=== PATIENT | male | born 1985 | race Caucasian/White ===

== ENCOUNTER 2018-12-09 23:44 | Observation (INO) | payer OTHER ==
[2018-12-10] MEDS ORDERED: DIPH/PERTUSS(ACELL)/TETANUS VAC/PF 0.5 ML SYR (>=10YO) IM ONE (04:01)
[2018-12-10] MEDS ORDERED: MORPHINE SULFATE 10 MG/ML INJ IV ONE (04:01)
[2018-12-10] MEDS ORDERED: ONDANSETRON HCL INJ/PF 4 MG/2 ML SDV IV ONE (04:01)
[2018-12-10] MEDS ORDERED: VANCOMYCIN HCL INJ 1000 MG VIAL IV ONE (04:04)
[2018-12-10] MEDS ORDERED: CEFTRIAXONE 1 GM/D5W RTU 1 GM/50 ML RTUPB IV ONE (04:04)
--- NOTE | 2018-12-10 04:35 | ER Document Report ---
ED Skin Rash/Insect Bite/Abscs - General Chief Complaint: Skin Problem Stated Complaint: WOUND ON ELBOW/PAIN Time Seen by Provider: 12/10/18 03:45 TRAVEL OUTSIDE OF THE [place] IN LAST 30 DAYS: No - HPI Notes: Patient is a 33-year-old male who presents to the emergency department for right elbow pain. Patient states that last Friday he thinks that he was bit by something, but is unsure, and states that he noticed a possible bite viki that came to a friend. Gradually over the past few days reports increased pain to the right elbow with limited range of motion. Increased redness and swelling. Reports chills. Patient complaint of pain now radiating up his arm. She did have an episode of nausea earlier which she thinks is from pain. States that his tetanus shot is not up-to-date. Patient is not a diabetic. Does report a history of IV drug abuse, last used 2 years ago, does report using marijuana. - Related Data Allergies/Adverse Reactions: No Known Allergies Allergy (Unverified 12/09/18 23:56) Past Medical History - General Information source: Patient Review of Systems - Review of Systems Constitutional: See HPI EENT: No symptoms reported Cardiovascular: No symptoms reported Respiratory: No symptoms reported Gastrointestinal: No symptoms reported Genitourinary: No symptoms reported Male Genitourinary: No symptoms reported Musculoskeletal: See HPI Skin: See HPI Hematologic/Lymphatic: No symptoms reported Neurological/Psychological: No symptoms reported Physical Exam - Vital signs Vitals: Temp Pulse Resp BP Pulse Ox 98.1 F 89 18 143/72 H 96 12/09/18 23:58 12/09/18 23:58 12/09/18 23:58 12/09/18 23:58 12/09/18 23:58 - Notes Notes: PHYSICAL EXAMINATION: GENERAL: Sitting upright, A&Ox4, appears to be in mild distress r/t pain. HEAD: Atraumatic, normocephalic. EYES: Pupils equal round and reactive to light, extraocular movements intact, sclera anicteric, conjunctiva are normal. ENT: nares patent, oropharynx clear without exudates. Moist mucous membranes. NECK: Normal range of motion, supple without lymphadenopathy LUNGS: Breath sounds clear to auscultation bilaterally and equal. No wheezes rales or rhonchi. HEART: Regular rate and rhythm without murmurs ABDOMEN: Soft, nontender, normoactive bowel sounds. No guarding, no rebound. No masses appreciated. EXTREMITIES: Significant swelling and erythema noted on the posterior aspect of the right elbow, she has limited range of motion regards to the elbow joint. Streaking noted above the right elbow to mid upper arm. NEUROLOGICAL: No focal neurological deficits. Moves all extremities spontaneously and on command. PSYCH: Normal mood, normal affect. SKIN: Warm, Dry, normal turgor, no rashes or lesions noted. - General General appearance: Alert In distress: Moderate Course - Re-evaluation Re-evalutation: 12/10/18 04:53 Due to significant pain, swelling, erythema, and limited range of motion to the right elbow the appropriate tests have been ordered. Discussed findings with Randy Parekh PA-C who also visualized area of concern. Discussed test with patient and significant other. Patient in agreement with plan. 12/10/18 07:41 CT scan was negative for underlying abscess, I do not suspect septic joint due to patient's ability to move right elbow joint, CBC and BMP negative, spoke with Dr. Apple the hospitalist service will come to the ER see patient and admit. 12/10/18 07:52 Hospitalist requested orthopedics to be consulted. Dr. Zimmer called and made aware of case. States he will take a look at patient. 12/10/18 07:56 - Vital Signs Vital signs: Temp Pulse Resp BP Pulse Ox 98.9 F 77 18 122/80 100 12/10/18 06:23 12/10/18 06:23 12/10/18 06:23 12/10/18 06:23 12/10/18 06:23 - Laboratory Result Diagrams: 12/10/18 04:53 12/10/18 04:53 - Diagnostic Test Radiology reviewed: Reports reviewed Discharge - Discharge Clinical Impression: Cellulitis of upper extremity Qualifiers: Laterality: right Qualified Code(s): L03.113 - Cellulitis of right upper limb Condition: Stable Disposition: ADMITTED INPATIENT Admitting Provider: Ambika (Hospitalist) Unit Admitted: Medical Floor
[2018-12-10 05:11] LABS: ABSOLUTE EOSINOPHILS # (AUTO) 0.2 10^3/uL (0.0-0.6); ABSOLUTE LYMPHOCYTES (AUTO) 2.5 10^3/uL (0.5-4.7); ABSOLUTE MONOCYTES (AUTO) 0.8 10^3/uL (0.1-1.4); ABSOLUTE NEUT (AUTO) 6.7 10^3/uL (1.7-8.2); BASOPHILS % (AUTO) 0.5 % (0-2); HEMATOCRIT 41.6 % (37.9-51.0); HEMOGLOBIN 14.6 g/dL (13.5-17.0); LYMPHOCYTES % (AUTO) 24.2 % (13-45); MEAN CORPUSCULAR HEMOGLOBIN 30.9 pg (27.0-33.4); MEAN CORPUSCULAR HGB CONC 35.1 g/dL (32.0-36.0); MEAN CORPUSCULAR VOLUME 88 fl (80-97); MONOCYTES % (AUTO) 7.6 % (3-13); PLATELET COUNT 247 10^3/uL (150-450); RED BLOOD COUNT 4.73 10^6/uL (4.35-5.55); RED CELL DISTRIBUTION WIDTH 13.2 % (11.5-14.0); SEGMENTED NEUTROPHILS % (AUTO) 65.7 % (42-78); TOTAL CELLS COUNTED % (AUTO) 100 %; WHITE BLOOD COUNT 10.2 10^3/uL (4.0-10.5)
[2018-12-10 05:29] LABS: ANION GAP 9 (5-19); BLOOD UREA NITROGEN 19 mg/dL (7-20); CALCIUM 9.5 mg/dL (8.4-10.2); CARBON DIOXIDE 26 mmol/L (22-30); CHLORIDE 104 mmol/L (98-107); GLUCOSE 86 mg/dL (75-110); POTASSIUM 3.9 mmol/L (3.6-5.0); SODIUM 138.5 mmol/L (137-145)
[2018-12-10] MEDS ORDERED: HYDROMORPHONE HCL INJ/PF 2 MG/ML AMPULE IV ONE (05:40)
[2018-12-10] MEDS ORDERED: CEFTRIAXONE INJ 1000 MG VIAL ONE (05:46)
--- NOTE | 2018-12-10 06:35 | RADIOLOGY REPORT (SQ) ---
EXAM DESCRIPTION: CT UPPER EXTREMITY WITH IV CONTRAST COMPLETED DATE/TME: 12/10/2018 04:01 CLINICAL HISTORY: Pain. 33 years Male, LIMITED ROM RIGHT ELBOW, SWELLING COMPARISON: Same day. Technique: IV contrast. Coronal and sagittal reformat. This exam was performed according to our departmental dose-optimization program, which includes automated exposure control, adjustment of the mA and/or kV according to patient size and/or use of iterative reconstruction technique. [facility]: Dose Right [facility]: CareDose [facility]: Dose Right [facility]: Teradose 4D [facility]: ThinkUp LIMITATIONS: None Findings: 0.5 x 2 cm curvilinear and 0.2 round ossicular loose bodies at the ulnohumeral joint, indeterminate age. Mild edema/bursitis at the posterior the right elbow. No enhancement abnormality. No abscess. Bones, joints, and soft tissues of the CT RIGHT ELBOW WITH IV CONTRAST appear otherwise intact. IMPRESSION: 1. There are 0.5 x 2 cm curvilinear and 0.2 round ossicular loose bodies at the ulnohumeral joint, indeterminate age. 2. Mild/moderate swelling/bursitis at the posterior the right elbow.
[2018-12-10] MEDS ORDERED: VANCOMYCIN HCL 0 MG in DEXTROSE 5%-WATER 250 ML IV NR (08:30)
[2018-12-10] MEDS ORDERED: ACETAMINOPHEN 325 MG TABLET PO PRN (09:03)
[2018-12-10] MEDS: KETOROLAC TROMETHAMINE INJ/PF 30 MG/1 ML SDV IV PRN ×2 (09:07→20:46)
[2018-12-10] MEDS: HYDROMORPHONE HCL INJ/PF 2 MG/ML AMPULE IV PRN ×3 (10:22→23:00)
--- NOTE | 2018-12-10 12:44 | PDOC H&P ---
History of Present Illness Admission Date/PCP: 12/10/18 07:55 Patient complains of: elbow pain, wound History of Present Illness: JUAN LARA is a 33 year old male with no significant PMH aside from alcohol use (1 beer/day), tobacco abuse (1 pack/day) and occasional marijuana use who presents with swelling on the right elbow. 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 He says he popped the lesion and started developing redness on the area in the next few days. On Friday, he notice increasing pain and redness which extended onto his right arm and forearm. He says the wound also became bigger. He reported subjective fever but denies chills. Social History Smoking Status: Current Some Day Smoker Family History Parental Family History Reviewed: Yes - no premature CAD Children Family History Reviewed: No Sibling(s) Family History Reviewed.: No Medication/Allergy Home Medications: No Home Medications 12/10/18 Allergies/Adverse Reactions: No Known Allergies Allergy (Unverified 12/09/18 23:56) Review of Systems All systems: reviewed and no additional remarkable complaints except as stated - as mentioned above Physical Exam Vital Signs: Temp Pulse Resp BP Pulse Ox 98.9 F 77 18 122/80 94 12/10/18 06:23 12/10/18 06:23 12/10/18 06:23 12/10/18 06:23 12/10/18 08:08 Intake & Output 12/09/18 12/10/18 12/11/18 06:59 06:59 06:59 Weight 218 lb 4.122 oz General appearance: PRESENT: no acute distress, well-developed, well-nourished Head exam: PRESENT: atraumatic, normocephalic Eye exam: PRESENT: conjunctiva pink, EOMI, PERRLA. ABSENT: scleral icterus Ear exam: PRESENT: normal external ear exam Mouth exam: PRESENT: moist, tongue midline Neck exam: ABSENT: carotid bruit, JVD, lymphadenopathy, thyromegaly Respiratory exam: PRESENT: clear to auscultation lorraine. ABSENT: rales, rhonchi, wheezes Cardiovascular exam: PRESENT: RRR. ABSENT: diastolic murmur, rubs, systolic murmur Pulses: PRESENT: normal dorsalis pedis pul GI/Abdominal exam: PRESENT: normal bowel sounds, soft. ABSENT: distended, guarding, mass, organolmegaly, rebound, tenderness Rectal exam: PRESENT: deferred Musculoskeletal exam: PRESENT: other - open wound on the right elbow with surrounding erythema and tenderness Neurological exam: PRESENT: alert, awake, oriented to person, oriented to place, oriented to time, oriented to situation, CN II-XII grossly intact. ABSENT: motor sensory deficit Results Laboratory Results: 12/10/18 04:53 12/10/18 04:53 12/10/18 12/10/18 04:53 04:53 WBC 10.2 RBC 4.73 Hgb 14.6 Hct 41.6 MCV 88 MCH 30.9 MCHC 35.1 RDW 13.2 Plt Count 247 Seg Neutrophils % 65.7 Lymphocytes % 24.2 Monocytes % 7.6 Eosinophils % 2.0 Basophils % 0.5 Absolute Neutrophils 6.7 Absolute Lymphocytes 2.5 Absolute Monocytes 0.8 Absolute Eosinophils 0.2 Absolute Basophils 0.0 Sodium 138.5 Potassium 3.9 Chloride 104 Carbon Dioxide 26 Anion Gap 9 BUN 19 Creatinine 0.94 Est GFR ( Amer) > 60 Est GFR (Non-Af Amer) > 60 Glucose 86 Calcium 9.5 Impressions: Upper Extremity CT 12/10/18 04:01 IMPRESSION: 1. There are 0.5 x 2 cm curvilinear and 0.2 round ossicular loose bodies at the ulnohumeral joint, indeterminate age. 2. Mild/moderate swelling/bursitis at the posterior the right elbow. Assessment and Plan - Diagnosis (1) Cellulitis of right elbow Is this a current diagnosis for this admission?: Yes Plan: Will start patient on IV vancomycin. Will order a wound culture as well. CT of the right UE was done and not show any abscess. There is some bursitis. There is no significant limitation of motion on right elbow joint flexion-extension. (2) Tobacco abuse Is this a current diagnosis for this admission?: Yes Plan: Counseled on smoking cessation. - Time Time Spent with patient: 15-24 minutes
[2018-12-10] MEDS: VANCOMYCIN HCL 1,500 MG in DEXTROSE 5%-WATER 250 ML IV SCH ×2 (15:45→21:30)
[2018-12-11] MEDS: VANCOMYCIN HCL 1,500 MG in DEXTROSE 5%-WATER 250 ML IV SCH ×3 (05:43→21:54)
[2018-12-11] MEDS: HYDROMORPHONE HCL INJ/PF 2 MG/ML AMPULE IV PRN ×5 (05:43→23:51)
[2018-12-11] MEDS: FONDAPARINUX SODIUM INJ 2.5 MG/0.5 ML DISP.SYRIN SUBCUT SCH (08:32)
[2018-12-11] MEDS: KETOROLAC TROMETHAMINE INJ/PF 30 MG/1 ML SDV IV PRN ×2 (10:01→21:54)
--- NOTE | 2018-12-11 11:50 | PDOC PROGRESS REPORT ---
Subjective Progress Note for:: 12/11/18 Subjective:: This is a 33 year old male with no significant PMH aside from alcohol use (1 beer/day), tobacco abuse (1 pack/day) and occasional marijuana use who presents with swelling on the right elbow. He was admitted for elbow cellulitis. No acute event overnight. He says the pain and tenderness is slightly better today. Right elbow still looks erythematous and tender with very mild improvement compared to yesterday. Wound culture is growing gram positive cocci. Reason For Visit: RIGHT ELBOW CELLULITIS Physical Exam Vital Signs: Temp Pulse Resp BP Pulse Ox 97.8 F 107 H 16 127/65 H 100 12/11/18 08:00 12/11/18 08:00 12/11/18 08:00 12/11/18 08:00 12/11/18 08:00 Intake & Output 12/10/18 12/11/18 12/12/18 06:59 06:59 06:59 Intake Total 500 250 Balance 500 250 Weight 218 lb 4.122 oz 215 lb 13.321 oz General appearance: PRESENT: no acute distress, well-developed, well-nourished Head exam: PRESENT: atraumatic, normocephalic Eye exam: PRESENT: conjunctiva pink, EOMI, PERRLA. ABSENT: scleral icterus Ear exam: PRESENT: normal external ear exam Mouth exam: PRESENT: moist, tongue midline Neck exam: ABSENT: carotid bruit, JVD, lymphadenopathy, thyromegaly Respiratory exam: PRESENT: clear to auscultation lorraine. ABSENT: rales, rhonchi, wheezes Cardiovascular exam: PRESENT: RRR. ABSENT: diastolic murmur, rubs, systolic murmur Pulses: PRESENT: normal dorsalis pedis pul GI/Abdominal exam: PRESENT: normal bowel sounds, soft. ABSENT: distended, guarding, mass, organolmegaly, rebound, tenderness Rectal exam: PRESENT: deferred Extremities exam: PRESENT: other - Right elbow still looks erythematous and tender with very mild improvement compared to yesterday. Neurological exam: PRESENT: alert, awake, oriented to person, oriented to place, oriented to time, oriented to situation, CN II-XII grossly intact. ABSENT: motor sensory deficit Results Laboratory Results: 12/10/18 04:53 12/10/18 04:53 Impressions: Upper Extremity CT 12/10/18 04:01 IMPRESSION: 1. There are 0.5 x 2 cm curvilinear and 0.2 round ossicular loose bodies at the ulnohumeral joint, indeterminate age. 2. Mild/moderate swelling/bursitis at the posterior the right elbow. Assessment and Plan - Diagnosis (1) Cellulitis of right elbow Is this a current diagnosis for this admission?: Yes Plan: He says the pain and tenderness is slightly better today. Right elbow still looks erythematous and tender with very mild improvement compared to yesterday. Wound culture is growing gram positive cocci. Continue vancomycin. (2) Tobacco abuse Is this a current diagnosis for this admission?: Yes Plan: Counseled on smoking cessation. - Time Time Spent with patient: 15-24 minutes
[2018-12-11 14:15] LABS: VANCOMYCIN,TROUGH 14.1 ug/mL (5.0-20.0)
[2018-12-12] MEDS: VANCOMYCIN HCL 1,500 MG in DEXTROSE 5%-WATER 250 ML IV SCH ×2 (05:23→13:02)
[2018-12-12] MEDS: HYDROMORPHONE HCL INJ/PF 2 MG/ML AMPULE IV PRN ×5 (05:24→22:06)
[2018-12-12] MEDS: FONDAPARINUX SODIUM INJ 2.5 MG/0.5 ML DISP.SYRIN SUBCUT SCH (08:02)
[2018-12-12] MEDS: KETOROLAC TROMETHAMINE INJ/PF 30 MG/1 ML SDV IV PRN ×3 (11:23→23:10)
--- NOTE | 2018-12-12 14:37 | PDOC PROGRESS REPORT ---
Subjective Progress Note for:: 12/12/18 Subjective:: No adverse events overnight. No new complaints. He said that every time the bandages changed there is a lot of pus on the bandage and it continues to drain. He said he feels like the swelling in his distal right upper extremity has improved. He is been afebrile. Reason For Visit: RIGHT ELBOW CELLULITIS Physical Exam Vital Signs: Temp Pulse Resp BP Pulse Ox 98.2 F 73 18 138/74 H 98 12/12/18 12:50 12/12/18 12:50 12/12/18 12:50 12/12/18 12:50 12/12/18 12:50 Intake & Output 12/11/18 12/12/18 12/13/18 06:59 06:59 06:59 Intake Total 500 750 250 Balance 500 750 250 Weight 97.9 kg 97.9 kg General appearance: PRESENT: no acute distress, well-developed, well-nourished Respiratory exam: PRESENT: clear to auscultation lorraine. ABSENT: rales, rhonchi, wheezes Cardiovascular exam: PRESENT: RRR. ABSENT: diastolic murmur, rubs, systolic murmur Pulses: PRESENT: normal dorsalis pedis pul GI/Abdominal exam: PRESENT: normal bowel sounds, soft. ABSENT: distended, guarding, mass, organolmegaly, rebound, tenderness Extremities exam: PRESENT: other - Right elbow is a large area of the erythema and induration with superficial ulceration with some mild erythema distal to the elbow and some swelling in the right upper extremity distal to the elbow compared to the left, all of which the patient says are improved. Neurological exam: PRESENT: alert, awake, oriented to person, oriented to place, oriented to time, oriented to situation Results Laboratory Results: 12/10/18 04:53 12/10/18 04:53 12/10/18 17:05 Elbow - Cellulitis Gram Stain - Final 12/10/18 17:05 Elbow - Cellulitis Wound Culture - Final Staphylococcus Aureus Impressions: Upper Extremity CT 12/10/18 04:01 IMPRESSION: 1. There are 0.5 x 2 cm curvilinear and 0.2 round ossicular loose bodies at the ulnohumeral joint, indeterminate age. 2. Mild/moderate swelling/bursitis at the posterior the right elbow. Assessment and Plan - Diagnosis (1) Cellulitis of right elbow Is this a current diagnosis for this admission?: Yes Plan: Culture has grown MSSA. I have switched him to Ancef. There is still a lot of noticeable erythema and swelling on the elbow, despite the fact that there is some drainage I would like to watch to see if he has continued resolution versus need for surgical drainage. - Time Time Spent with patient: 15-24 minutes
[2018-12-12] MEDS: CEFAZOLIN SODIUM 2 GM in DEXTROSE 5%-WATER 100 ML IV SCH ×2 (17:29→23:10)
[2018-12-12] MEDS ORDERED: CEFAZOLIN 2 GM/D5W RTU 2 GM/50 ML RTUPB IV SCH (18:00)
[2018-12-13] MEDS: HYDROMORPHONE HCL INJ/PF 2 MG/ML AMPULE IV PRN ×3 (02:10→10:38)
[2018-12-13] MEDS: KETOROLAC TROMETHAMINE INJ/PF 30 MG/1 ML SDV IV PRN (05:51)
[2018-12-13] MEDS: CEFAZOLIN SODIUM 2 GM in DEXTROSE 5%-WATER 100 ML IV SCH (05:51)
[2018-12-13] MEDS: FONDAPARINUX SODIUM INJ 2.5 MG/0.5 ML DISP.SYRIN SUBCUT SCH (07:15)
[2018-12-13 08:53] VITALS: BP 137/85
--- NOTE | 2018-12-13 15:40 | PDOC DISCHARGE SUMMARY ---
General - Admit/Disc Date/PCP Admission Date/Primary Care Provider: 12/10/18 07:55 Discharge Date: 12/13/18 - Discharge Diagnosis (1) Cellulitis of right elbow Is this a current diagnosis for this admission?: Yes Summary: Started empirically on vancomycin, drainage from the wound showed an MSSA. He was switched to Ancef and responded well. He will finish up the course of Keflex at home. - Additional Information Discharge Diet: Regular Discharge Activity: Activity As Tolerated Prescriptions: Cephalexin [Cephalexin 500 MG Tablet] 1 tab PO QID #40 tablet Hydrocodone/Acetaminophen [Hydrocodone-Acetamin 5-300 mg] 1 each PO Q6HP PRN #15 tablet PRN Reason: Home Medications: Cephalexin [Cephalexin 500 MG Tablet] 1 tab PO QID #40 tablet 12/13/18 Hydrocodone/Acetaminophen [Hydrocodone-Acetamin 5-300 mg] 1 each PO Q6HP PRN #15 tablet 12/13/18 History of Present Illness History of Present Illness: JUAN LARA is a 33 year old male with no significant PMH aside from alcohol use (1 beer/day), tobacco abuse (1 pack/day) and occasional marijuana use who presents with swelling on the right elbow. 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 He says he popped the lesion and started developing redness on the area in the next few days. On Friday, he notice increasing pain and redness which extended onto his right arm and forearm. He sa ys the wound also became bigger. He reported subjective fever but denies chills. Hospital Course Hospital Course: He was placed on vancomycin and the drainage was cultured. A continue to drain so it was thought there was probably no pocket of fluid that would need to be surgically drained. The wound grew MSSA and he was transitioned to Ancef. He continued to show excellent improvement. He will finish his treatment with Keflex at home. He was given some simple wound care instructions. His labs and examination were reassuring and he was discharged home in good condition. Physical Exam Vital Signs: Temp Pulse Resp BP Pulse Ox 97.5 F 89 15 137/85 H 97 12/13/18 10:14 12/13/18 10:14 12/13/18 10:14 12/13/18 10:14 12/13/18 10:14 Intake & Output 12/12/18 12/13/18 12/14/18 06:59 06:59 06:59 Intake Total 750 2053 237 Balance 750 2053 237 Weight 97.9 kg 97.9 kg General appearance: PRESENT: no acute distress, well-developed, well-nourished Respiratory exam: PRESENT: clear to auscultation lorraine. ABSENT: rales, rhonchi, wheezes Cardiovascular exam: PRESENT: RRR. ABSENT: diastolic murmur, rubs, systolic murmur Pulses: PRESENT: normal dorsalis pedis pul GI/Abdominal exam: PRESENT: normal bowel sounds, soft. ABSENT: distended, guarding, mass, organolmegaly, rebound, tenderness Extremities exam: PRESENT: other - Right elbow is a 3 cm area of superficial ulceration with some mild surrounding erythema Neurological exam: PRESENT: alert, awake, oriented to person, oriented to place, oriented to time, oriented to situation Results Laboratory Results: 12/10/18 04:53 12/10/18 04:53 Impressions: Upper Extremity CT 12/10/18 04:01 IMPRESSION: 1. There are 0.5 x 2 cm curvilinear and 0.2 round ossicular loose bodies at the ulnohumeral joint, indeterminate age. 2. Mild/moderate swelling/bursitis at the posterior the right elbow. Qualifiers - * PATIENT BEING DISCHARGED WITH ANY OF THE FOLLOWING DIAGNOSIS: No Plan Time Spent: Greater than 30 Minutes
== END 2018-12-13 11:08 | disposition home or self-care (01) ==
LOC: ER 23:44 → INTOOBSV 12-10 07:55 → EH 12-10 07:55 → 4N 12-10 08:33
PROVIDERS: ADMIT Internal Medicine; ATTEND Internal Medicine
PROC: 3E0234Z Introduction of Serum, Toxoid and Vaccine into Muscle, Percutaneous Approach (ICD-10-PCS; principal; 2018-12-10)
DX: L03.113 Cellulitis of right upper limb (principal); B95.61 Methicillin susceptible Staphylococcus aureus infection as the cause of diseases classified elsewhere; F17.210 Nicotine dependence, cigarettes, uncomplicated; M70.31 Other bursitis of elbow, right elbow; R11.0 Nausea; F19.11 Other psychoactive substance abuse, in remission; Z23 Encounter for immunization
CPT/HCPCS: 96376; 99284; 90471; 96375; 96365; 96366; 96368; 36415 ×2; 87040; 87070; 87205; 85025; 87077; 80048; 87186; 80202; 73201; 90715; G0378 ×4; J0690 ×2; J1885 ×4; J2270; J1652 ×3; J1170 ×4; J0696; J3490 ×4; J2405; J7060 ×3; J3370 ×3